=== PATIENT | male | born 1975 | race Caucasian/White ===

== ENCOUNTER 2018-08-20 15:10 | Inpatient (IN) | payer OTHER ==
[2018-08-20 22:33] VITALS: BMI 35.2
--- NOTE | 2018-08-20 23:22 | HP ---
"CIWA Score Nausea/Vomitin-Mild Nausea/No Vomiting Muscle Tremors: 3 Anxiety: 4-Mod. Anxious/Guarded Agitation: 4-Moderately Restless Paroxysmal Sweats: 3 (Increased facial moisture) Orientation: 1-Uncertain about Date Tacttile Disturbances: 0-None Auditory Disturbances: 0-None Visual Disturbances: 0-None Headache: 0-None Present CIWA-Ar Total Score: 16 - Admission Criteria OASAS Guidelines: Admission for Medically Managed Detox: Requires at least one of the followin. CIWA greater than 12 2. Seizures within the past 24 hours 3. Delirium tremens within the past 24 hours 4. Hallucinations within the past 24 hours 5. Acute intervention needed for co occurring medical disorder 6. Acute intervention needed for co occurring psychiatric disorder 7. Severe withdrawal that cannot be handled at a lower level of care (continued vomiting, continued diarrhea, abnormal vital signs) requiring intravenous medication and/or fluids 8. Patient presents the following: CIWA greater than 12 Admission Criteria Met: Admission criteria met Admission ROS [facility] Chief Complaint: Here to stop using alcohol. Allergies/Adverse Reactions: Allergies Allergy/AdvReac Type Severity Reaction Status Date / Time haloperidol [From Haldol] Allergy Verified 08/20/18 23:19 lactose AdvReac Verified 08/20/18 23:19 History of Present Illness: Presented with acute alcohol intoxication. LEANDRO not assessed for 2 hours then results were a LEANDRO 0.180 now down to 0.146 and in withdrawal. Alcohol use since age 15. Currently drinks 3 pints vodka daily. Crack use since since age 20. Last used 2 days ago. Nicotine use since age 18. Hx seizure 2 years and last blackout yesterday. Longest length of sobriety 2006-. PHX: Asthma Denies mental health issues. States hx insomnia - rx'd in past w/ Remeron. Denies depression. Denies thoughts of harming self or others. Search Terms: Angel Chavez, 1975 Search Date: 08/20/2018 11:20:34 PM The Drug Utilization Report below displays all of the controlled substance prescriptions, if any, that your patient has filled in the last twelve months. The information displayed on this report is compiled from pharmacy submissions to the Department, and accurately reflects the information as submitted by the pharmacies. This report was requested by: Jessica Malik | Reference #: [id number] There are no results for the search terms that you entered. Exam Limitations: No Limitations - Ebola screening Have you traveled outside of the country in the last 21 days: No Have you had contact with anyone from an Ebola affected area: No Have you been sick,other than usual withdrawal symptoms: No Do you have a fever: No - Review of Systems Constitutional: Diaphoresis, Changes in sleep (Difficulty falling asleep. States takes Remeron.) EENT: reports: Dental Problems (Missing a few. No pain.) Respiratory: reports: No Symptoms reported (States hx asthma) Cardiac: reports: No Symptoms Reported GI: reports: Nausea : reports: No Symptoms Reported Musculoskeletal: reports: No Symptoms Reported Integumentary: reports: No Symptoms Reported Neuro: reports: Seizure (r/t alcohol withdrawal.), Tremors Endocrine: reports: No Symptoms Reported Hematology: reports: No Symptoms Reported Psychiatric: reports: Judgement Intact, Orientated x3 (Unsure of specific date) , Agitated, Anxious Patient History - PPD History Previous Implant?: No Documented Results: Negative w/o proof Implanted On Prior [facility] Admission?: No PPD to be Administered?: Yes - Smoking Cessation Smoking history: Current every day smoker Have you smoked in the past 12 months: Yes Aproximately how many cigarettes per day: 20 Hx Chewing Tobacco Use: No Initiated information on smoking cessation: Yes 'Breaking Loose' booklet given: 08/20/18 - Substance & Tx. History Hx Alcohol Use: Yes Hx Substance Use: Yes Substance Use Type: Alcohol, Cocaine Hx Substance Use Treatment: Yes (detox, rehab) - Substances Abused Alcohol Route: Oral Frequency: Daily Amount used: 3 PINTS VODKA Age of first use: 7 Date of Last Use: 08/20/18 Crack Route: Smoking Frequency: Daily Amount used: $1500 Age of first use: 17 Date of Last Use: 08/18/18 Admission Physical Exam BHS - Vital Signs Vital Signs: Vital Signs - 24 hr 08/20/18 22:31 Temperature 97.9 F Pulse Rate 91 H Respiratory 18 Rate Blood Pressure 121/93 - Physical General Appearance: Yes: Disheveled, Moderate Distress, Alcohol on Breath, Tremorous, Irritable, Sweating, Anxious HEENTM: Yes: EOMI (Jerking movement of eyes on lateral gaze), Normal Voice, [place] , Pharynx Normal Respiratory: Yes: Lungs Clear, Normal Breath Sounds, No Respiratory Distress Neck: Yes: No masses,lesions,Nodules, Supple Breast: Yes: Breast Exam Deferred Cardiology: Yes: Regular Rhythm, Regular Rate, S1, S2 Abdominal: Yes: Flat, Soft, Increased Bowel Sounds, Protuberent (Increased abdomnial adiposity) Genitourinary: Yes: Within Normal Limits Back: Yes: Normal Inspection Musculoskeletal: Yes: full range of Motion, Gait Steady Extremities: Yes: Normal Capillary Refill, Normal Range of Motion, Tremors Neurological: Yes: plate setter II-XII NML intact (Jerking movement of eyes on lateral gaze), Motor Strength 5/5 Integumentary: Yes: Dry (Very dry w/ decreased turgor), Diaphoresis (Increased facial moisture) Lymphatic: Yes: Within Normal Limits - Diagnostic (1) Alcohol dependence with uncomplicated withdrawal Current Visit: Yes Status: Acute (2) Nicotine dependence, uncomplicated Current Visit: Yes Status: Acute Qualifiers: Nicotine product type: cigarettes Qualified Code(s): F17.210 - Nicotine dependence, cigarettes, uncomplicated (3) History of asthma Current Visit: Yes Status: Chronic Comment: Denies recent exacerbation (4) Dehydration Current Visit: Yes Status: Acute (5) Cocaine use disorder, moderate, in early remission Current Visit: Yes Status: Acute Cleared for Admission [facility] - Detox or Rehab [facility] Level of Care: Medically Managed Detox Regimen/Protocol: Librium [facility] Breath Alcohol Content Breath Alcohol Content: 0.181 Urine Drug Screen - Results Drug Screen Negative: No Urine Drug Screen Results: BZO-Benzodiazepines Inpatient Rehab Admission - Rehab Decision to Admit Inpatient rehab admission?: No"
[2018-08-20] MEDS ORDERED: MAG HYDROX/AL HYDROX/SIMETH 30 ML UNIT-DOSE CUP PO PRN (23:59)
[2018-08-20] MEDS ORDERED: MENTHOL/PHENOL 1 EACH UD MM PRN (23:59)
[2018-08-20] MEDS ORDERED: MAGNESIUM HYDROX 2400MG/30ML ORAL SUSPENSION 30 ML CUP PO PRN (23:59)
[2018-08-20] MEDS ORDERED: NICOTINE POLACRILEX 2 MG GUM BC PRN (23:59)
[2018-08-20] MEDS ORDERED: MAGNESIUM CITRATE 300 ML BOTTLE PO PRN (23:59)
[2018-08-20] MEDS ORDERED: IBUPROFEN 400 MG TABLET (FP) PO PRN (23:59)
[2018-08-20] MEDS ORDERED: LOPERAMIDE HCL 2 MG CAPSULE PO PRN (23:59)
[2018-08-20] MEDS ORDERED: ACETAMINOPHEN 325 MG TABLET (FP) PO PRN (23:59)
[2018-08-21] MEDS ORDERED: guaiFENesin 200 MG/10 ML 10 ML UNIT-DOSE CUPS PO PRN
[2018-08-21] MEDS ORDERED: chlordiazePOXIDE HCL 25 MG CAPSULE PO ONE (01:03)
[2018-08-21] MEDS ORDERED: ALBUTEROL SO4 0.083% IH SOL 2.5 MG/3 ML VIAL.NEB. NEB PRN (02:15)
[2018-08-21] MEDS: chlordiazePOXIDE HCL 25 MG CAPSULE PO SCH ×4 (06:16→21:59)
[2018-08-21] MEDS: NICOTINE 21 MG/24 HOURS TOPICAL PATCH TD SCH (10:20)
[2018-08-21] MEDS: PRENATAL VITAMINS W/ FOLIC ACID TABLET (FP) PO SCH (10:20)
--- NOTE | 2018-08-21 12:46 | EKG ---
Test Reason : Blood Pressure : / mmHG Vent. Rate : 112 BPM Atrial Rate : 112 BPM P-R Int : 158 ms QRS Dur : 092 ms QT Int : 334 ms P-R-T Axes : 048 074 055 degrees QTc Int : 455 ms SINUS TACHYCARDIA WITH OCCASIONAL PREMATURE VENTRICULAR COMPLEXES OTHERWISE NORMAL ECG NO PREVIOUS ECGS AVAILABLE Confirmed by TANIA RANDALL, SHELBI ([id number]) on 08/21/2018 12:46:35 PM Referred By: RUPAL COSTA Confirmed By:SHELBI MARIN MD
[2018-08-21] MEDS: chlordiazePOXIDE HCL 25 MG CAPSULE PO PRN (14:01)
--- NOTE | 2018-08-21 15:45 | PN ---
S CIWA - CIWA Score Nausea/Vomitin-Mild Nausea/No Vomiting Muscle Tremors: 3 Anxiety: 2 Agitation: 2 Paroxysmal Sweats: 1-Minimal Palms Moist Orientation: 2-Disoriented Date<2 days Tacttile Disturbances: 0-None Auditory Disturbances: 0-None Visual Disturbances: 0-None Headache: 0-None Present CIWA-Ar Total Score: 11 BHS Progress Note (SOAP) Subjective: tremor sweating anxiety restlessness Objective: 08/21/18 15:46 Vital Signs Temperature 99.1 F 08/21/18 13:41 Pulse Rate 102 H 08/21/18 14:30 Respiratory Rate 16 08/21/18 14:30 Blood Pressure 158/94 08/21/18 13:41 O2 Sat by Pulse Oximetry (%) lab pending Assessment: 08/21/18 16:14 alcohol withdrawal sx Plan: continue detox
[2018-08-21] MEDS: THIAMINE HCL 100 MG TABLET (FP) PO SCH (21:59)
[2018-08-21] MEDS: MELATONIN 5 MG TABLETS PO PRN (22:00)
[2018-08-21 23:07] LABS: URINE APPEARANCE CLEAR; URINE BILIRUBIN NEGATIVE (<2.0 mg/dL); URINE COLOR STRAW; URINE GLUCOSE (UA) NEGATIVE (NEGATIVE); URINE KETONE NEGATIVE (NEGATIVE); URINE LEUK ESTERASE NEGATIVE (NEGATIVE); URINE NITRITE NEGATIVE (NEGATIVE); URINE PROTEIN NEGATIVE (NEGATIVE); URINE UROBILINOGEN NEGATIVE mg/dL (0.2-1.0)
[2018-08-22] MEDS: chlordiazePOXIDE HCL 25 MG CAPSULE PO SCH ×4 (06:00→22:18)
--- NOTE | 2018-08-22 10:08 | CONSULT ---
[facility] Psychiatric Consult - Data Date of interview: 08/22/18 Admission source: [facility] Identifying data: Patient is a 43 year old single male, without children, unemployed (denies receiving financial assistance) and is currently homeless. This is patient's first admission to detox at [facility]. Patient admitted to for alcohol dependence. Substance Abuse History: Smoking Cessation. Smoking history: Current every day smoker. Have you smoked in the past 12 months: Yes. Aproximately how many cigarettes per day: 20. Hx Chewing Tobacco Use: No. Initiated information on smoking cessation: Yes. 'Breaking Loose' booklet given: 08/20/18. - Substance & Tx. History. Hx Alcohol Use: Yes. Hx Substance Use: Yes. Substance Use Type : Alcohol, Cocaine. Hx Substance Use Treatment: Yes (detox, rehab). - Substances Abused. Alcohol. Route: Oral. Frequency: Daily. Amount used: 3 PINTS VODKA. Age of first use: 7. Date of Last Use: 08/20/18. Crack. Route: Smoking. Frequency: Daily. Amount used: $1500. Age of first use: 17. Date of Last Use: 08/18/18 Medical History: Asthma Psychiatric History: Patient has only received psychiatric care during his admissions at detox and rehab facilities. Last month, patient was in detox at an unknown facility in [place] and states he was prescribed remeron 30mg for insomnia. He discontinued the medication after discharge. Mr. Chavez denies h/o psychiatric hospitalization, outpatient care, and suicide attempt. At present, patient reports difficulty sleeping. Physical/Sexual Abuse/Trauma History: denies. Mental Status Exam - Mental Status Exam Alert and Oriented to: Time, Place, Person Cognitive Function: Good Patient Appearance: Well Groomed Mood: Irritable (patient upset because someone took his breakfast ) Affect: Mood Congruent Patient Behavior: Cooperative Speech Pattern: Appropriate Voice Loudness: Normal Thought Process: Intact, Goal Oriented Thought Disorder: Not Present Hallucinations: Denies Suicidal Ideation: Denies Homicidal Ideation: Denies Insight/Judgement: Poor Sleep: Poorly Appetite: Fair Muscle strength/Tone: Normal Gait/Station: Normal Psychiatric Findings - Problem List ([place] 1, 2,3) (1) Alcohol dependence with uncomplicated withdrawal Current Visit: Yes Status: Acute (2) Cocaine use disorder, moderate, in early remission Current Visit: Yes Status: Acute (3) Nicotine dependence, uncomplicated Current Visit: Yes Status: Acute Qualifiers: Nicotine product type: cigarettes Qualified Code(s): F17.210 - Nicotine dependence, cigarettes, uncomplicated (4) Substance-induced sleep disorder Current Visit: Yes Status: Acute - Initial Treatment Plan Initial Treatment Plan: Psychoeducation provided. Detoxification in progress. Will order Mirtzapine 15mg HS. Benefits and side effects discussed. Verbal consent given.
[2018-08-22] MEDS: NICOTINE 21 MG/24 HOURS TOPICAL PATCH TD SCH (10:24)
[2018-08-22] MEDS: PRENATAL VITAMINS W/ FOLIC ACID TABLET (FP) PO SCH (10:24)
[2018-08-22 10:37] LABS: HEMATOCRIT 41.2 % (35.4-49); MCHC 34.1 g/dl (32.0-35.9); MEAN CELL VOLUME 88.1 fl (80-96); MEAN PLT VOLUME 6.9 fl (7.5-11.1); PLATELET COUNT 127 K/MM3 (134-434); RBC 4.67 M/mm3 (4.00-5.60); WHITE BLOOD COUNT 4.7 K/mm3 (4.0-10.0)
[2018-08-22 10:57] LABS: ALK PHOS 100 U/L (45-117); ANION GAP 8 MMOL/L (8-16); BILIRUBIN,TOTAL 0.5 mg/dL (0.2-1); BLOOD UREA NITROGEN 10 mg/dL (7-18); CHLORIDE 106 mmol/L (98-107); CO2 28 mmol/L (21-32); CREATININE 0.9 mg/dL (0.55-1.3); GLUCOSE,RANDOM 101 mg/dL (74-106); POTASSIUM 3.7 mmol/L (3.5-5.1); SGOT/AST 17 U/L (15-37); SGPT/ALT 34 U/L (13-61); SODIUM 142 mmol/L (136-145); TOT PROT 5.9 g/dl (6.4-8.2)
--- NOTE | 2018-08-22 12:11 | PN ---
S CIWA - CIWA Score Nausea/Vomitin-No Nausea/No Vomiting Muscle Tremors: 2 Anxiety: 1-Mildly Anxious Agitation: 1-Slight > Activity Paroxysmal Sweats: 1-Minimal Palms Moist Orientation: 0-Oriented Tacttile Disturbances: 0-None Auditory Disturbances: 0-None Visual Disturbances: 0-None Headache: 1-Very Mild CIWA-Ar Total Score: 6 BHS Progress Note (SOAP) Subjective: tremor irritable agitative sweating Objective: 08/22/18 12:10 Vital Signs Temperature 97.5 F L 08/22/18 09:54 Pulse Rate 84 08/22/18 09:54 Respiratory Rate 18 08/22/18 09:54 Blood Pressure 155/103 H 08/22/18 09:54 O2 Sat by Pulse Oximetry (%) Laboratory Last Values WBC 4.7 K/mm3 (4.0-10.0) 08/22/18 07:00 RBC 4.67 M/mm3 (4.00-5.60) 08/22/18 07:00 Hgb 14.0 GM/dL (11.7-16.9) 08/22/18 07:00 Hct 41.2 % (35.4-49) 08/22/18 07:00 MCV 88.1 fl (80-96) 08/22/18 07:00 MCH 30.0 pg (25.7-33.7) 08/22/18 07:00 MCHC 34.1 g/dl (32.0-35.9) 08/22/18 07:00 RDW 17.0 % (11.9-15.9) H 08/22/18 07:00 Plt Count 127 K/MM3 (134-434) L 08/22/18 07:00 MPV 6.9 fl (7.5-11.1) L 08/22/18 07:00 Sodium 142 mmol/L (136-145) 08/22/18 07:00 Potassium 3.7 mmol/L (3.5-5.1) 08/22/18 07:00 Chloride 106 mmol/L (98-107) 08/22/18 07:00 Carbon Dioxide 28 mmol/L (21-32) 08/22/18 07:00 Anion Gap 8 MMOL/L (8-16) 08/22/18 07:00 BUN 10 mg/dL (7-18) 08/22/18 07:00 Creatinine 0.9 mg/dL (0.55-1.3) 08/22/18 07:00 Creat Clearance w eGFR > 60 (>60) 08/22/18 07:00 Random Glucose 101 mg/dL (74-106) 08/22/18 07:00 Calcium 8.0 mg/dL (8.5-10.1) L 08/22/18 07:00 Total Bilirubin 0.5 mg/dL (0.2-1) 08/22/18 07:00 AST 17 U/L (15-37) 08/22/18 07:00 ALT 34 U/L (13-61) 08/22/18 07:00 Alkaline Phosphatase 100 U/L (45-117) 08/22/18 07:00 Total Protein 5.9 g/dl (6.4-8.2) L 08/22/18 07:00 Albumin 3.0 g/dl (3.4-5.0) L 08/22/18 07:00 Urine Color Straw 08/21/18 22:10 Urine Appearance Clear 08/21/18 22:10 Urine pH 8.0 (5.0-8.0) 08/21/18 22:10 Ur Specific [place] 1.011 (1.010-1.035) 08/21/18 22:10 Urine Protein Negative (NEGATIVE) 08/21/18 22:10 Urine Glucose (UA) Negative (NEGATIVE) 08/21/18 22:10 Urine Ketones Negative (NEGATIVE) 08/21/18 22:10 Urine Blood Negative (NEGATIVE) 08/21/18 22:10 Urine Nitrite Negative (NEGATIVE) 08/21/18 22:10 Urine Bilirubin Negative (<2.0 mg/dL) 08/21/18 22:10 Urine Urobilinogen Negative mg/dL (0.2-1.0) 08/21/18 22:10 Ur Leukocyte Esterase Negative (NEGATIVE) 08/21/18 22:10 lab noted Ca++ low Assessment: 08/22/18 12:11 withdrawal sx Plan: continue detox
[2018-08-22] MEDS: CALCIUM 250MG/VIT-D 125 UNITS 1 COMBO TABLET PO SCH ×2 (13:09→22:19)
[2018-08-22] MEDS: chlordiazePOXIDE HCL 25 MG CAPSULE PO PRN (13:09)
--- NOTE | 2018-08-22 14:05 | EKG ---
Test Reason : Blood Pressure : / mmHG Vent. Rate : 087 BPM Atrial Rate : 088 BPM P-R Int : 162 ms QRS Dur : 094 ms QT Int : 404 ms P-R-T Axes : 119 103 112 degrees QTc Int : 486 ms SUSPECT ARM LEAD REVERSAL, INTERPRETATION ASSUMES NO REVERSAL NORMAL SINUS RHYTHM RIGHTWARD AXIS PROLONGED QT ABNORMAL ECG NO PREVIOUS ECGS AVAILABLE Confirmed by BRITTA ALEXANDRE MD ([id number]) on 08/22/2018 2:05:08 PM Referred By: Confirmed By:BRITTA ALEXANDRE MD
[2018-08-22] MEDS ORDERED: MIRTAZAPINE 15 MG TABLET (FP) PO SCH (22:00)
[2018-08-22] MEDS: MELATONIN 5 MG TABLETS PO PRN (22:19)
[2018-08-22] MEDS: THIAMINE HCL 100 MG TABLET (FP) PO SCH (22:19)
[2018-08-23] MEDS: chlordiazePOXIDE 5 MG CAPSULE PO SCH ×3 (05:26→17:36)
[2018-08-23] MEDS: CALCIUM 250MG/VIT-D 125 UNITS 1 COMBO TABLET PO SCH (10:27)
[2018-08-23] MEDS: NICOTINE 21 MG/24 HOURS TOPICAL PATCH TD SCH (10:28)
[2018-08-23] MEDS: PRENATAL VITAMINS W/ FOLIC ACID TABLET (FP) PO SCH (10:28)
--- NOTE | 2018-08-23 16:49 | PN ---
BHS Progress Note (SOAP) Subjective: Sweating, Anxious. Objective: PATIENT A & O X 3. IN NO ACUTE DISTRESS. 08/23/18 16:47 Vital Signs Temperature 96.0 F L 08/23/18 13:21 Pulse Rate 88 08/23/18 13:21 Respiratory Rate 20 08/23/18 13:21 Blood Pressure 144/92 08/23/18 13:21 O2 Sat by Pulse Oximetry (%) Laboratory Tests 08/21/18 08/22/18 08/22/18 22:10 07:00 07:00 WBC 4.7 RBC 4.67 Hgb 14.0 Hct 41.2 MCV 88.1 MCH 30.0 MCHC 34.1 RDW 17.0 H Plt Count 127 L MPV 6.9 L Sodium 142 Potassium 3.7 Chloride 106 Carbon Dioxide 28 Anion Gap 8 BUN 10 Creatinine 0.9 Creat Clearance w eGFR > 60 Random Glucose 101 Calcium 8.0 L Total Bilirubin 0.5 AST 17 ALT 34 Alkaline Phosphatase 100 Total Protein 5.9 L Albumin 3.0 L Urine Color Straw Urine Appearance Clear Urine pH 8.0 Ur Specific [place] 1.011 Urine Protein Negative Urine Glucose (UA) Negative Urine Ketones Negative Urine Blood Negative Urine Nitrite Negative Urine Bilirubin Negative Urine Urobilinogen Negative Ur Leukocyte Esterase Negative RPR Titer 08/22/18 07:00 WBC RBC Hgb Hct MCV MCH MCHC RDW Plt Count MPV Sodium Potassium Chloride Carbon Dioxide Anion Gap BUN Creatinine Creat Clearance w eGFR Random Glucose Calcium Total Bilirubin AST ALT Alkaline Phosphatase Total Protein Albumin Urine Color Urine Appearance Urine pH Ur Specific [place] Urine Protein Urine Glucose (UA) Urine Ketones Urine Blood Urine Nitrite Urine Bilirubin Urine Urobilinogen Ur Leukocyte Esterase RPR Titer Nonreactive LABS NOTED. Assessment: 08/23/18 16:47 WITHDRAWAL SYMPTOMS. THROMBOCYTOPENIA. Plan: PATIENT REPORTS THAT CURRENT WITHDRAWAL SYMPTOMS ARE TOLERABLE. BED IS CURRENTLY AVAILABLE AT [facility] ([place], [place]), PATIENT REQUESTS TO GO ON TO REHAB FOR AFTERCARE TODAY.
--- NOTE | 2018-08-23 16:53 | DS ---
[facility] Detox Discharge Summary Admission Date: 08/20/18 Discharge Date: 08/23/18 - History Present History: Alcohol Dependence, Cocaine Dependence Additional Comments: PATIENT REPORTS THAT CURRENT WITHDRAWAL SYMPTOMS ARE TOLERABLE AND REQUESTS TO GO NO TO [facility] ([place], [place]) BED IS CURRENTLY AVAILABLE THERE AT THIS TIME. PATIENT WAS DISCHARGED FROM DETOX UNIT TO BE TAKEN OVER TO REHAB UNIT IN STABLE MEDICAL CONDITION. Pertinent Past History: Asthma, Nicotine Dependence, Dehydration. - Physical Exam Results Vital Signs: Vital Signs Temperature 96.0 F L 08/23/18 13:21 Pulse Rate 88 08/23/18 13:21 Respiratory Rate 20 08/23/18 13:21 Blood Pressure 144/92 08/23/18 13:21 O2 Sat by Pulse Oximetry (%) Pertinent Admission Physical Exam Findings: WITHDRAWAL SYMPTOMS. Laboratory Tests 08/21/18 08/22/18 08/22/18 22:10 07:00 07:00 WBC 4.7 RBC 4.67 Hgb 14.0 Hct 41.2 MCV 88.1 MCH 30.0 MCHC 34.1 RDW 17.0 H Plt Count 127 L MPV 6.9 L Sodium 142 Potassium 3.7 Chloride 106 Carbon Dioxide 28 Anion Gap 8 BUN 10 Creatinine 0.9 Creat Clearance w eGFR > 60 Random Glucose 101 Calcium 8.0 L Total Bilirubin 0.5 AST 17 ALT 34 Alkaline Phosphatase 100 Total Protein 5.9 L Albumin 3.0 L Urine Color Straw Urine Appearance Clear Urine pH 8.0 Ur Specific [place] 1.011 Urine Protein Negative Urine Glucose (UA) Negative Urine Ketones Negative Urine Blood Negative Urine Nitrite Negative Urine Bilirubin Negative Urine Urobilinogen Negative Ur Leukocyte Esterase Negative RPR Titer 08/22/18 07:00 WBC RBC Hgb Hct MCV MCH MCHC RDW Plt Count MPV Sodium Potassium Chloride Carbon Dioxide Anion Gap BUN Creatinine Creat Clearance w eGFR Random Glucose Calcium Total Bilirubin AST ALT Alkaline Phosphatase Total Protein Albumin Urine Color Urine Appearance Urine pH Ur Specific [place] Urine Protein Urine Glucose (UA) Urine Ketones Urine Blood Urine Nitrite Urine Bilirubin Urine Urobilinogen Ur Leukocyte Esterase RPR Titer Nonreactive LABS NOTED. - Treatment Hospital Course: Detox Protocol Followed, Detoxed Safely, Responded well, Discharged Condition Good, Rehab Referral Accepted Patient has Accepted a Rehab Referral to: [facility] ([place], [place]). - Medication Discharge Medications: Ambulatory Orders NK [No Known Home Medication] 08/20/18 - Diagnosis (1) Alcohol dependence with uncomplicated withdrawal Current Visit: Yes Status: Acute (2) Cocaine use disorder, moderate, in early remission Current Visit: Yes Status: Acute (3) Dehydration Current Visit: Yes Status: Acute (4) Nicotine dependence, uncomplicated Current Visit: Yes Status: Acute Qualifiers: Nicotine product type: cigarettes Qualified Code(s): F17.210 - Nicotine dependence, cigarettes, uncomplicated (5) Substance-induced sleep disorder Current Visit: Yes Status: Acute (6) History of asthma Current Visit: Yes Status: Chronic - AMA Did Patient Leave Against Medical Advice: No
[2018-08-23 17:59] VITALS: BP 113/70; PULSE 73; TEMP 98.4
[2018-08-24] MEDS ORDERED: chlordiazePOXIDE HCL 10 MG CAPSULE PO SCH (05:00)
== END 2018-08-23 17:05 | disposition other institution (70) | DRG 774 ==
LOC: YASAS 15:10 → Y3N 23:22
PROVIDERS: ADMIT Surgery; ATTEND Surgery
PROC: HZ2ZZZZ Detoxification Services for Substance Abuse Treatment (ICD-10-PCS; principal; 2018-08-20)
DX: F10.230 Alcohol dependence with withdrawal, uncomplicated (principal); F14.10 Cocaine abuse, uncomplicated; F17.210 Nicotine dependence, cigarettes, uncomplicated; F19.282 Other psychoactive substance dependence with psychoactive substance-induced sleep disorder; E86.0 Dehydration; J45.909 Unspecified asthma, uncomplicated; Z88.8 Allergy status to other drugs, medicaments and biological substances; Z59.0 Homelessness
CPT/HCPCS: 36415; 80053; 81003; 85027; 86593; 93005; 93010

== ENCOUNTER 2018-08-23 23:17 | Inpatient (IN) | payer OTHER ==
--- NOTE | 2018-08-23 16:59 | HP ---
[facility] Rehab Assess/Revision - Admission History Admitted to Rehab from: [facility] Date of Admission to Rehab: 08/23/2018 - Vital signs Vital Signs: NOTED; STABLE. - Findings Detox History & Physical reviewed: Yes Concur with findings: Yes Comments/Additional Findings: PATIENT'S MEDICAL / MEDICATION HISTORY REVIEWED PRIOR TO DISCHARGE FROM DETOX UNIT. PATIENT WAS DISCHARGED FROM DETOX UNIT TO BE TAKEN TO REHAB UNIT IN STABLE MEDICAL CONDITION. Inpatient Rehab Admission - Rehab Decision to Admit Inpatient rehab admission?: Yes - Initial Determination Are CD services needed?: Yes Free of communicable disease: Yes Not in need of hospitalization: Yes - Rehab Admission Criteria Previous failed treatment: Yes Poor recovery environment: Yes Comorbidities: Yes Lacks judgement: No Patient is meeting Inpatient Rehab admission criteria:: Yes
[~2018-08-23 23:17] MED LIST: ACETAMINOPHEN 325 MG TABLET (FP) PO PRN; ALBUTEROL SO4 2.5/IPRATROPIUM 0.5 INH SOL 3 ML VIAL.NEB. NEB PRN; IBUPROFEN 400 MG TABLET (FP) PO PRN; LOPERAMIDE HCL 2 MG CAPSULE PO PRN; MAG HYDROX/AL HYDROX/SIMETH 30 ML UNIT-DOSE CUP PO PRN; MAGNESIUM CITRATE 300 ML BOTTLE PO PRN; MAGNESIUM HYDROX 2400MG/30ML ORAL SUSPENSION 30 ML CUP PO PRN; MENTHOL/PHENOL 1 EACH UD MM PRN; P-EPHED 60MG/TRIPROLIDI 2.5MG TABLET PO PRN; guaiFENesin 200 MG/10 ML 10 ML UNIT-DOSE CUPS PO PRN
[2018-08-23] MEDS: CALCIUM 250MG/VIT-D 125 UNITS 1 COMBO TABLET PO SCH (23:53)
[2018-08-23] MEDS: THIAMINE HCL 100 MG TABLET (FP) PO SCH (23:53)
[2018-08-24] MEDS: NICOTINE 21 MG/24 HOURS TOPICAL PATCH TD SCH (10:47)
[2018-08-24] MEDS: CALCIUM 250MG/VIT-D 125 UNITS 1 COMBO TABLET PO SCH ×2 (10:49→22:02)
[2018-08-24] MEDS: PRENATAL VITAMINS W/ FOLIC ACID TABLET (FP) PO SCH (10:49)
--- NOTE | 2018-08-24 10:53 | CONSULT ---
[facility] Psychiatric Consult - Data Date of interview: 08/24/18 Admission source: Transfer from [address] [place] [address]. Identifying data: First admission to [facility] for this 43 y/o male, initially treated on [address] [place] [address] for detoxification, now transferred to [address] for rehabilitation. Substances of abuse : alcohol + cocaine (crack). Patient is single, no children, undomiciled, unemployed and reportedly deprived of any source of income. Substance Abuse History: Confirmed by the patient. Details in current [facility] report issued on admission : Smoking history: Current every day smoker. Have you smoked in the past 12 months: Yes. Aproximately how many cigarettes per day : 20. Hx Chewing Tobacco Use: No. Initiated information on smoking cessation: Yes. 'Breaking Loose' booklet given: 08/20/18. - Substance & Tx. History. Hx Alcohol Use: Yes. Hx Substance Use: Yes. Substance Use Type: Alcohol, Cocaine. Hx Substance Use Treatment: Yes (detox, rehab). - Substances Abused. Alcohol. Route: Oral. Frequency: Daily. Amount used: 3 PINTS VODKA. Age of first use: 7. Date of Last Use: 08/20/18. Crack. Route: Smoking. Frequency: Daily. Amount used: $1500. Age of first use: 17. Date of Last Use : 08/18/18 Medical History: Obesity and bronchial asthma. Psychiatric History: Patient denies history of psychiatric hospitalizations or OPD care. Endorses no prior exposure to psychotropic medications except for mirtazapine (prescribed at an unnamed substance abuse treatment facility in [place]. Mr Chavez reports that he was prescribed 30 mg of mirtazapine at bedtime. " I stay awake all night on 15 mg. It's not working. My dose is 30 mg. Otherwise, I get agitated by the fact I don't sleep at night ". No reported history of suicide attempts. Physical/Sexual Abuse/Trauma History: Not discussed. Patient declines. Additional Comment: Urine Drug Screen Results: BZO-Benzodiazepines. Noted. Mental Status Exam - Mental Status Exam Alert and Oriented to: Time, Place, Person Cognitive Function: Good Patient Appearance: Well Groomed (short stature, obese) Mood: Angry (about not being able to get adequate sleep + not getting mirtazapine), Anxious, Irritable (at the beginning of the interview; calmed down after receiving reassurance that mirtazapine will be resumed at bedtime) Affect: Mood Congruent, Normal Range (considerably improved after psychiatric interview) Patient Behavior: Talkative, Appropriate, Cooperative Speech Pattern: Clear, Appropriate (bruneian-speaking) Voice Loudness: Normal Thought Process: Intact, Goal Oriented Thought Disorder: Not Present Hallucinations: Denies Suicidal Ideation: Denies Homicidal Ideation: Denies Insight/Judgement: Fair Sleep: Poorly, Difficulty falling asleep (insists on getting back on 30 mg of mirtazapine) Appetite: Good Muscle strength/Tone: Normal Gait/Station: Normal Psychiatric Findings - Problem List ([place] 1, 2,3) (1) Alcohol dependence Current Visit: Yes Status: Chronic (2) Cocaine dependence Current Visit: Yes Status: Chronic Comment: Urine toxicology is negative for cocaine but the patient has reported a sustained history of daily abuse of that substance since age 17. (3) Nicotine dependence, uncomplicated Current Visit: Yes Status: Chronic Qualifiers: Nicotine product type: cigarettes Qualified Code(s): F17.210 - Nicotine dependence, cigarettes, uncomplicated (4) Substance induced mood disorder Current Visit: Yes Status: Suspected (5) Insomnia Current Visit: Yes Status: Chronic - Initial Treatment Plan Initial Treatment Plan: Record of hospital course at [address] [place] [address] : revisited. Patient's complaints are validated. Reassurance given. Psychoeducation. Support. AA meetings. Strategies for relapse prevention will be discussed with the patient throughout rehabilitation treatment. Sleep hygiene. Motivational sessions. Remeron 30 mg po hs. Resumed (patient was on 15 mg/hs at [address] [place] [address]). Side effects/benefits of the drug are discussed with the patient. No history of adverse effects (self-report). Mr Chavez consents (verbally) to this plan of care. Observation.
[2018-08-24] MEDS: MIRTAZAPINE 30 MG TABLET (FP) PO SCH (22:02)
[2018-08-24] MEDS: THIAMINE HCL 100 MG TABLET (FP) PO SCH (22:02)
[2018-08-24] MEDS: MELATONIN 5 MG TABLETS PO PRN (22:03)
[2018-08-24] MEDS ORDERED: BISMUTH SUBSALICYLATE 524 MG/30 ML UD PO PRN (23:54)
[2018-08-25] MEDS: hydrOXYzine PAMOATE 50 MG CAPSULE (FP) PO PRN ×2 (00:15→22:25)
[2018-08-25] MEDS: CALCIUM 250MG/VIT-D 125 UNITS 1 COMBO TABLET PO SCH ×2 (11:00→22:23)
[2018-08-25] MEDS: NICOTINE 21 MG/24 HOURS TOPICAL PATCH TD SCH (11:00)
[2018-08-25] MEDS: PRENATAL VITAMINS W/ FOLIC ACID TABLET (FP) PO SCH (11:00)
[2018-08-25] MEDS: NICOTINE POLACRILEX 2 MG GUM BUC PRN ×2 (18:07→22:27)
[2018-08-25] MEDS: THIAMINE HCL 100 MG TABLET (FP) PO SCH (22:23)
[2018-08-25] MEDS: MIRTAZAPINE 30 MG TABLET (FP) PO SCH (22:23)
[2018-08-26] MEDS: NICOTINE 21 MG/24 HOURS TOPICAL PATCH TD SCH (09:50)
[2018-08-26] MEDS: PRENATAL VITAMINS W/ FOLIC ACID TABLET (FP) PO SCH (09:52)
[2018-08-26] MEDS: CALCIUM 250MG/VIT-D 125 UNITS 1 COMBO TABLET PO SCH ×2 (09:52→21:08)
--- NOTE | 2018-08-26 12:00 | PN ---
Psychiatric Progress Note Vital Signs: Vital Signs Period Temp Pulse Resp BP Sys/Collier Pulse Ox Last 24 Hr 97.5 F 87 18-18 130/84 Date of Session: 08/26/18 Chief Complaint:: Insomnia HPI: Mr Chavez is a 43 years old male admitted to this facility on 08/23/18 for inpatient rehabilitation for alcohol and cocaine ROS: Asthma, Obesity Current Medications: Active Medications Generic Name Dose Route Start Last Admin Trade Name Freq PRN Reason Stop Dose Admin Acetaminophen 650 mg 08/23/18 16:54 Tylenol - PO Q4H PRN FEVER Al Hydroxide/Mg Hydroxide 30 ml 08/23/18 16:54 Mylanta Oral Suspension - PO Q6H PRN DYSPEPSIA Albuterol/Ipratropium 1 amp 08/23/18 16:56 Duoneb - NEB Q6H PRN SHORT OF BREATH/WHEEZING Bismuth Subsalicylate 524 mg 08/24/18 23:54 Pepto-Bismol - PO BID PRN DIARRHEA Calcium/Vitamin D 1 tab 08/23/18 22:00 08/26/18 09:52 Oscal 250 Mg+D - PO 08/30/18 21:59 Not Given BID ZAKIA Eucalyptus/Menthol/Phenol/Sorbitol 1 each 08/23/18 16:54 Cepastat Lozenge - MM Q4H PRN SORE THROAT Guaifenesin 10 ml 08/23/18 16:54 Robitussin - PO Q6H PRN COUGH Hydroxyzine Pamoate 50 mg 08/24/18 23:52 08/25/18 22:25 Vistaril - PO 50 mg Q6H PRN Administration FOR ITCHING Ibuprofen 400 mg 08/23/18 16:54 Motrin - PO Q6H PRN Pain Level 4-6 Loperamide HCl 4 mg 08/23/18 16:54 08/25/18 00:15 Imodium - PO 4 mg Q6H PRN Administration DIARRHEA Magnesium Citrate 300 ml 08/23/18 16:54 Citroma - PO Q48H PRN CONSTIPATION Magnesium Hydroxide 30 ml 08/23/18 16:54 Milk Of Magnesia - PO DAILY PRN CONSTIPATION Melatonin 5 mg 08/23/18 22:00 08/24/18 22:03 Melatonin PO 5 mg HS PRN Administration INSOMNIA Mirtazapine 30 mg 08/24/18 22:00 08/25/18 22:23 Remeron - PO 30 mg HS ZAKIA Administration Nicotine 21 mg 08/24/18 10:00 08/26/18 09:50 Nicoderm Patch - TD 21 mg DAILY ZAKIA Administration Nicotine Polacrilex 2 mg 08/23/18 16:54 08/25/18 22:27 Nicorette Gum - BUC 2 mg Q2H PRN Administration NICOTINE REPLACEMENT RX Multivit/Folic Acid/Iron 1 tab 08/24/18 10:00 08/26/18 09:52 Vitamins (Sjr) - PO Not Given DAILY ZAKIA Pseudoephedrine/Triprolidine 1 combo 08/23/18 16:54 Actifed - PO TID PRN NASAL CONGESTION Thiamine HCl 100 mg 08/23/18 22:00 08/25/18 22:23 Vitamin B1 - PO Not Given HS ZAKIA Trazodone HCl 50 mg 08/26/18 22:00 Desyrel - PO HS ZAKIA Current Side Effect: No Lab tests ordered: Yes Lab tests reviewed: Yes Provider note:: Patient reports sleeping poorly despite taking Remeron 30 mg and Melatonin 5 mg at bedtime. Requests that Trazadone be added to his regimen. Discussed with patient advers-effects of Trazadone and he agreed to try it Total face to face time:: 15 Mental Status Exam - Mental Status Exam Alert and Oriented to: Time, Place, Person Cognitive Function: Fair Patient Appearance: Well Groomed Mood: Hopeful, Euthymic Affect: Appropriate Patient Behavior: Cooperative Speech Pattern: Clear Voice Loudness: Normal Thought Process: Intact Thought Disorder: Not Present Hallucinations: Denies Suicidal Ideation: Denies Homicidal Ideation: Denies Insight/Judgement: Fair Sleep: Poorly Appetite: Good Muscle strength/Tone: Normal Gait/Station: Normal Psychiatric Treatment Plan - Problem List (1) Substance induced mood disorder Current Visit: Yes (2) Substance-induced sleep disorder Current Visit: No (3) Alcohol dependence Current Visit: Yes (4) Cocaine dependence Current Visit: Yes Comment: Urine toxicology is negative for cocaine but the patient has reported a sustained history of daily abuse of that substance since age 17. (5) Nicotine dependence Current Visit: Yes (6) Bronchial asthma Current Visit: Yes (7) Obesity Current Visit: Yes Initial treatment plan: 1) Start Trazadone 50 mg po HS. 2) Continue inpatient rehabilitation
[2018-08-26] MEDS ORDERED: BISMUTH SUBSALICYLATE 262 MG/15 ML BTL PO PRN (15:04)
[2018-08-26] MEDS: BISMUTH SUBSALICYLATE 262 MG/15 ML BTL PO PRN (18:12)
[2018-08-26] MEDS: MIRTAZAPINE 30 MG TABLET (FP) PO SCH (21:07)
[2018-08-26] MEDS: traZODone HCL 50 MG TABLET (FP) PO SCH (21:07)
[2018-08-26] MEDS: THIAMINE HCL 100 MG TABLET (FP) PO SCH (21:08)
[2018-08-27] MEDS: BISMUTH SUBSALICYLATE 262 MG/15 ML BTL PO PRN ×2 (06:27→21:10)
[2018-08-27] MEDS: PRENATAL VITAMINS W/ FOLIC ACID TABLET (FP) PO SCH (09:26)
[2018-08-27] MEDS: CALCIUM 250MG/VIT-D 125 UNITS 1 COMBO TABLET PO SCH ×2 (09:26→21:12)
[2018-08-27] MEDS: NICOTINE 21 MG/24 HOURS TOPICAL PATCH TD SCH (09:27)
[2018-08-27] MEDS: traZODone HCL 50 MG TABLET (FP) PO SCH (21:10)
[2018-08-27] MEDS: MIRTAZAPINE 30 MG TABLET (FP) PO SCH (21:10)
[2018-08-27] MEDS: THIAMINE HCL 100 MG TABLET (FP) PO SCH (21:12)
[2018-08-27] MEDS: MELATONIN 5 MG TABLETS PO PRN (21:12)
[2018-08-28] MEDS: BISMUTH SUBSALICYLATE 262 MG/15 ML BTL PO PRN (10:06)
[2018-08-28] MEDS: PRENATAL VITAMINS W/ FOLIC ACID TABLET (FP) PO SCH (10:06)
[2018-08-28] MEDS: NICOTINE 21 MG/24 HOURS TOPICAL PATCH TD SCH (10:06)
[2018-08-28] MEDS: CALCIUM 250MG/VIT-D 125 UNITS 1 COMBO TABLET PO SCH ×2 (10:19→22:00)
[2018-08-28] MEDS ORDERED: ALBUTEROL SO4 2.5/IPRATROPIUM 0.5 INH SOL 3 ML VIAL.NEB. NEB PRN (16:56)
[2018-08-28] MEDS: NICOTINE POLACRILEX 2 MG GUM BUC PRN ×2 (17:36→23:53)
[2018-08-28] MEDS: MELATONIN 5 MG TABLETS PO PRN (22:00)
[2018-08-28] MEDS: THIAMINE HCL 100 MG TABLET (FP) PO SCH (22:00)
[2018-08-28] MEDS: traZODone HCL 50 MG TABLET (FP) PO SCH (22:00)
[2018-08-28] MEDS: MIRTAZAPINE 30 MG TABLET (FP) PO SCH (22:00)
[2018-08-29] MEDS: NICOTINE POLACRILEX 2 MG GUM BUC PRN ×3 (09:38→21:06)
[2018-08-29] MEDS: NICOTINE 21 MG/24 HOURS TOPICAL PATCH TD SCH (09:38)
[2018-08-29] MEDS: PRENATAL VITAMINS W/ FOLIC ACID TABLET (FP) PO SCH (09:43)
[2018-08-29] MEDS: CALCIUM 250MG/VIT-D 125 UNITS 1 COMBO TABLET PO SCH ×2 (09:43→21:06)
[2018-08-29] MEDS: MIRTAZAPINE 30 MG TABLET (FP) PO SCH (21:06)
[2018-08-29] MEDS: MELATONIN 5 MG TABLETS PO PRN (21:06)
[2018-08-29] MEDS: traZODone HCL 50 MG TABLET (FP) PO SCH (21:06)
[2018-08-29] MEDS: THIAMINE HCL 100 MG TABLET (FP) PO SCH (21:06)
[2018-08-30] MEDS: PRENATAL VITAMINS W/ FOLIC ACID TABLET (FP) PO SCH (09:48)
[2018-08-30] MEDS: NICOTINE 21 MG/24 HOURS TOPICAL PATCH TD SCH (09:48)
[2018-08-30] MEDS: CALCIUM 250MG/VIT-D 125 UNITS 1 COMBO TABLET PO SCH (09:48)
[2018-08-30] MEDS: NICOTINE POLACRILEX 2 MG GUM BUC PRN ×3 (09:49→21:14)
[2018-08-30] MEDS: MIRTAZAPINE 30 MG TABLET (FP) PO SCH (21:11)
[2018-08-30] MEDS: traZODone HCL 50 MG TABLET (FP) PO SCH (21:11)
[2018-08-30] MEDS: THIAMINE HCL 100 MG TABLET (FP) PO SCH (21:12)
[2018-08-30] MEDS: MELATONIN 5 MG TABLETS PO PRN (21:13)
[2018-08-31] MEDS: NICOTINE 21 MG/24 HOURS TOPICAL PATCH TD SCH (09:42)
[2018-08-31] MEDS: PRENATAL VITAMINS W/ FOLIC ACID TABLET (FP) PO SCH (09:42)
[2018-08-31] MEDS: NICOTINE POLACRILEX 2 MG GUM BUC PRN ×4 (09:44→23:45)
[2018-08-31] MEDS: MIRTAZAPINE 30 MG TABLET (FP) PO SCH (21:03)
[2018-08-31] MEDS: traZODone HCL 50 MG TABLET (FP) PO SCH (21:03)
[2018-08-31] MEDS: MELATONIN 5 MG TABLETS PO PRN (21:03)
[2018-08-31] MEDS: THIAMINE HCL 100 MG TABLET (FP) PO SCH (21:04)
[2018-09-01] MEDS: NICOTINE 21 MG/24 HOURS TOPICAL PATCH TD SCH (10:06)
[2018-09-01] MEDS: PRENATAL VITAMINS W/ FOLIC ACID TABLET (FP) PO SCH (10:06)
[2018-09-01] MEDS: NICOTINE POLACRILEX 2 MG GUM BUC PRN ×4 (10:06→21:06)
[2018-09-01] MEDS: MIRTAZAPINE 30 MG TABLET (FP) PO SCH (21:05)
[2018-09-01] MEDS: THIAMINE HCL 100 MG TABLET (FP) PO SCH (21:05)
[2018-09-01] MEDS: MELATONIN 5 MG TABLETS PO PRN (21:05)
[2018-09-01] MEDS: traZODone HCL 50 MG TABLET (FP) PO SCH (21:05)
[2018-09-02] MEDS: PRENATAL VITAMINS W/ FOLIC ACID TABLET (FP) PO SCH (09:53)
[2018-09-02] MEDS: NICOTINE 21 MG/24 HOURS TOPICAL PATCH TD SCH (09:53)
[2018-09-02] MEDS: NICOTINE POLACRILEX 2 MG GUM BUC PRN ×4 (09:53→21:09)
[2018-09-02] MEDS: traZODone HCL 50 MG TABLET (FP) PO SCH (21:06)
[2018-09-02] MEDS: MIRTAZAPINE 30 MG TABLET (FP) PO SCH (21:06)
[2018-09-02] MEDS: THIAMINE HCL 100 MG TABLET (FP) PO SCH (21:07)
[2018-09-02] MEDS: MELATONIN 5 MG TABLETS PO PRN (21:07)
[2018-09-03] MEDS: PRENATAL VITAMINS W/ FOLIC ACID TABLET (FP) PO SCH (10:05)
[2018-09-03] MEDS: NICOTINE 21 MG/24 HOURS TOPICAL PATCH TD SCH (10:05)
[2018-09-03] MEDS: NICOTINE POLACRILEX 2 MG GUM BUC PRN ×5 (10:06→23:25)
[2018-09-03] MEDS: BISMUTH SUBSALICYLATE 262 MG/15 ML BTL PO PRN (11:10)
[2018-09-03] MEDS: THIAMINE HCL 100 MG TABLET (FP) PO SCH (21:07)
[2018-09-03] MEDS: MIRTAZAPINE 30 MG TABLET (FP) PO SCH (21:07)
[2018-09-03] MEDS: traZODone HCL 50 MG TABLET (FP) PO SCH (21:07)
[2018-09-03] MEDS: MELATONIN 5 MG TABLETS PO PRN (21:08)
[2018-09-04 06:26] VITALS: BP 122/80; PULSE 55; TEMP 97.8
[2018-09-04] MEDS: PRENATAL VITAMINS W/ FOLIC ACID TABLET (FP) PO SCH (09:47)
[2018-09-04] MEDS: NICOTINE 21 MG/24 HOURS TOPICAL PATCH TD SCH (09:47)
[2018-09-04] MEDS: NICOTINE POLACRILEX 2 MG GUM BUC PRN ×5 (09:47→21:07)
[2018-09-04] MEDS: BISMUTH SUBSALICYLATE 262 MG/15 ML BTL PO PRN (18:59)
[2018-09-04] MEDS: MELATONIN 5 MG TABLETS PO PRN (21:06)
[2018-09-04] MEDS: traZODone HCL 50 MG TABLET (FP) PO SCH (21:06)
[2018-09-04] MEDS: MIRTAZAPINE 30 MG TABLET (FP) PO SCH (21:06)
[2018-09-04] MEDS: THIAMINE HCL 100 MG TABLET (FP) PO SCH (21:07)
[2018-09-05] MEDS: BISMUTH SUBSALICYLATE 262 MG/15 ML BTL PO PRN (10:01)
[2018-09-05] MEDS: PRENATAL VITAMINS W/ FOLIC ACID TABLET (FP) PO SCH (10:02)
[2018-09-05] MEDS: NICOTINE 21 MG/24 HOURS TOPICAL PATCH TD SCH (10:02)
--- NOTE | 2018-09-05 13:06 | PN ---
[facility] Progress Note Note: PT COMPLETED REHAB AND DISCHARGED TODAY. PT WAS REFERRED TO [facility] FOR AFTERCARE. Home Medications Medication Instructions Recorded Mirtazapine [Remeron -] 30 mg PO HS #30 tablet 09/04/18 Vital Signs (72 hours) 09/03/18 09/03/18 09/04/18 03:30 06:39 00:30 Temperature 97.2 F L Pulse Rate 58 L Respiratory 18 18 18 Rate Blood Pressure 129/72 09/04/18 09/04/18 09/05/18 03:30 06:25 00:30 Temperature 97.8 F Pulse Rate 55 L Respiratory 18 18 18 Rate Blood Pressure 122/80 09/05/18 03:30 Temperature Pulse Rate Respiratory 18 Rate Blood Pressure NAD MEDICALLY STABLE PLAN:FOLLOW UP WITH CD AFTERCARE RECOMMENDATION. GO TO NEAREST ER IN CASE OF MEDICAL EMERGENCY DX: PLEASE SEE INPATIENT SERVICE MED DOCUMENT.
== END 2018-09-05 11:10 | disposition home or self-care (01) | DRG 772 ==
LOC: YASAS 23:17 → Y5N 23:18
PROVIDERS: ADMIT Neuromusculoskeletal Medicine & OMM; ATTEND Neuromusculoskeletal Medicine & OMM
PROC: HZ42ZZZ Group Counseling for Substance Abuse Treatment, Cognitive-Behavioral (ICD-10-PCS; principal; 2018-08-23)
DX: F10.20 Alcohol dependence, uncomplicated (principal); F14.20 Cocaine dependence, uncomplicated; F17.210 Nicotine dependence, cigarettes, uncomplicated; F19.282 Other psychoactive substance dependence with psychoactive substance-induced sleep disorder; F19.24 Other psychoactive substance dependence with psychoactive substance-induced mood disorder; G47.00 Insomnia, unspecified; J45.909 Unspecified asthma, uncomplicated; E66.9 Obesity, unspecified; Z59.0 Homelessness

== ENCOUNTER 2019-02-28 12:19 | Inpatient (IN) | payer OTHER | END 2019-03-05 13:43 | disposition other institution (70) | LOC: YASAS 12:19 → Y6N 14:52 ==

== ENCOUNTER 2019-03-05 14:19 | Inpatient (IN) | payer OTHER ==
[2019-03-05] MEDS ORDERED: MENTHOL/PHENOL 1 EACH UD MM PRN (20:37)
[2019-03-05] MEDS ORDERED: ACETAMINOPHEN 325 MG TABLET (FP) PO PRN (20:37)
[2019-03-05] MEDS ORDERED: MAG HYDROX/AL HYDROX/SIMETH 30 ML UNIT-DOSE CUP PO PRN (20:37)
[2019-03-05] MEDS ORDERED: MAGNESIUM HYDROX 2400MG/30ML ORAL SUSPENSION 30 ML CUP PO PRN (20:37)
[2019-03-05] MEDS ORDERED: P-EPHED 60MG/TRIPROLIDI 2.5MG TABLET PO PRN (20:37)
[2019-03-05] MEDS ORDERED: MAGNESIUM CITRATE 300 ML BOTTLE PO PRN (20:37)
[2019-03-05] MEDS ORDERED: LOPERAMIDE HCL 2 MG CAPSULE PO PRN (20:37)
[2019-03-05] MEDS ORDERED: IBUPROFEN 400 MG TABLET (FP) PO PRN (20:37)
[2019-03-05] MEDS ORDERED: guaiFENesin 200 MG/10 ML 10 ML UNIT-DOSE CUPS PO PRN (20:37)
--- NOTE | 2019-03-05 20:37 | HP ---
[facility] Rehab Assess/Revision - Admission History Admitted to Rehab from: [facility] Date of Admission to Rehab: 03/05/2019 - Findings Detox History & Physical reviewed: Yes Concur with findings: Yes Comments/Additional Findings: Patient is from detox with early remission of alcohol use disorder. Patient w/ co-occurring marijuana and crack use disorder. PMhx: Asthma. Patient w/ a history of asthma. last EKG on 08/21/18 showed Sinus tachycardia w/ PVC's and prolonged QT interval. Patient denies chest pain or feeling of irregular heart beat. Inpatient Rehab Admission - Rehab Decision to Admit Inpatient rehab admission?: Yes - Initial Determination Are CD services needed?: Yes Free of communicable disease: Yes Not in need of hospitalization: Yes - Rehab Admission Criteria Previous failed treatment: Yes Poor recovery environment: Yes Comorbidities: Yes Lacks judgement: No Patient is meeting Inpatient Rehab admission criteria:: Yes
[2019-03-05] MEDS ORDERED: NICOTINE POLACRILEX 4 MG GUM BUC PRN (20:41)
[2019-03-05] MEDS: BACITRACIN 15 GM TUBE TOPICAL OINTMENT TP SCH (22:15)
[2019-03-05] MEDS: THIAMINE HCL 100 MG TABLET (FP) PO SCH (22:16)
[2019-03-05] MEDS: traZODone HCL 100 MG TABLET (FP) PO SCH (22:16)
[2019-03-05] MEDS: MELATONIN 5 MG TABLETS PO PRN (22:17)
[2019-03-06] MEDS: NICOTINE 14 MG/24 HOURS TOPICAL PATCH TD SCH (10:03)
[2019-03-06] MEDS: PRENATAL VITAMINS W/ FOLIC ACID TABLET (FP) PO SCH (10:04)
[2019-03-06] MEDS: BACITRACIN 15 GM TUBE TOPICAL OINTMENT TP SCH ×2 (10:04→21:59)
--- NOTE | 2019-03-06 13:05 | PN ---
[facility] Progress Note Note: New pt admitted to rehab last evening with a hx of alcohol and crack/cocaine dependence. Hx of Asthma, Seizures, HTN, Depression and Anxiety. Pt was psych consulted in Detox [address] [place] [address] with no medication recommended at the time but observation. As per detox psych note pt declined psychoeducation. Pt currently ordered Trazodone 100 mg hs after admission to rehab yesterday by covering VACUUM TECHNICIAN King. Pt states he was unable to remember if he saw psych in detox due to fatigue and detoxing and was having difficulty sleeping even with the Trazodone as ordered. Reports he takes Remeron 30 mg and requests to speak to psych MD to restart it.Reports last time taken was 02/22/19. Pt state he has primary doctor at [facility]. Reports last saw his doctor beginning of the tear but has been to many other treatment facilities over the past several months. Vital Signs - 24 hr 03/06/19 03/06/19 03:30 08:24 Temperature 97.9 F Pulse Rate 66 Respiratory 18 18 Rate Blood Pressure 147/97 A/P Hx Major Depression(pt reports) Sleeping problems To follow up with psych consult Increase po fluids
[2019-03-06] MEDS: NICOTINE POLACRILEX 4 MG GUM BUC PRN ×3 (17:42→22:01)
[2019-03-06] MEDS: BISMUTH SUBSALICYLATE 524 MG/30 ML UD PO PRN (21:59)
[2019-03-06] MEDS: MELATONIN 5 MG TABLETS PO PRN (21:59)
[2019-03-06] MEDS: traZODone HCL 100 MG TABLET (FP) PO SCH (21:59)
[2019-03-06] MEDS: THIAMINE HCL 100 MG TABLET (FP) PO SCH (21:59)
[2019-03-07] MEDS: NICOTINE POLACRILEX 4 MG GUM BUC PRN ×5 (06:39→22:15)
[2019-03-07] MEDS: PRENATAL VITAMINS W/ FOLIC ACID TABLET (FP) PO SCH (10:47)
[2019-03-07] MEDS: BACITRACIN 15 GM TUBE TOPICAL OINTMENT TP SCH ×2 (10:48→22:14)
[2019-03-07] MEDS: NICOTINE 14 MG/24 HOURS TOPICAL PATCH TD SCH (10:48)
--- NOTE | 2019-03-07 12:54 | CONSULT ---
[facility] Psychiatric Consult - Data Date of interview: 03/07/19 Admission source: [facility] Identifying data: Patient is a 43 year old single male, without children, unemployed, homeless, and is not supported with financial assistance. This is one of multiple admissions for patient. Patient admitted to for alcohol, cannabis, and cocaine dependence. Substance Abuse History: Smoking Cessation. Smoking history: Current every day smoker. Have you smoked in the past 12 months: Yes. Aproximately how many cigarettes per day: 20. Cigars Per Day: 0. Hx Chewing Tobacco Use: No. Initiated information on smoking cessation: No. - Substances abused. Marijuana/Hashish. Substance route: Smoking. Frequency: Daily. Amount used: 20 dollars. Age of first use: 18. Date of last use: 02/27/19. Crack. Substance route: Smoking. Frequency: 1-2 times per week. Amount used: 500 dollars. Age of first use: 22. Date of last use: 02/25/19. Alcohol. Substance route: Oral. Frequency: Daily. Amount used: 3 pints of vodka or whisky,200 ounces of beer. Age of first use: 7. Date of last use: 02/28/19 Medical History: seizures (2015) Psychiatric History: Patient reports one psychiatric hospitalization three years ago at [facility]. Mr. Chavez is unable to elaborate on why he was hospitalized as he only remembers being tied down and given IM's of thorazine (possible episode of drug induced psychosis). He reports seeing a psychiatrist last year as he attempted to receive SSI and was tried on Wellbutrin, prozac and risperdal. Patient denies history of auditory/ visual hallucinations, paranoid ideation and suicide attempt. Patient was recently in treatment for detox in [place] and was prescribed trazodone 100mg + Remeron 30mg HS with favorable effects. Patient has not taken remeron since discharge several weeks ago. At present patient reports difficulty sleeping. Physical/Sexual Abuse/Trauma History: denies. Mental Status Exam - Mental Status Exam Alert and Oriented to: Time, Place, Person Cognitive Function: Good Patient Appearance: Well Groomed Mood: Anxious Affect: Mood Congruent Patient Behavior: Cooperative Speech Pattern: Appropriate Voice Loudness: Normal Thought Process: Goal Oriented Thought Disorder: Not Present Hallucinations: Denies Suicidal Ideation: Denies Homicidal Ideation: Denies Insight/Judgement: Poor Sleep: Poorly Appetite: Fair Muscle strength/Tone: Normal Gait/Station: Normal Psychiatric Findings - Problem List ([place] 1, 2,3) (1) Substance-induced sleep disorder Current Visit: Yes Status: Acute (2) Cannabis abuse Current Visit: Yes Status: Chronic Comment: Self-report. Negative toxicology. (3) Cocaine dependence Current Visit: Yes Status: Chronic Qualifiers: Substance use status: uncomplicated Qualified Code(s): F14.20 - Cocaine dependence, uncomplicated Comment: Urine toxicology is negative for cocaine but the patient has reported a sustained history of daily abuse of that substance since age 17. (4) Substance induced mood disorder Current Visit: Yes Status: Suspected - Initial Treatment Plan Initial Treatment Plan: Psychoeducation provided. Rehab in progress. Will order Mirtazapine 15mg HS. Patient ordered trazodone 100mg upon admission. Patient refusing to accept a higher dose of trazodone as he states it has not been effective. Stated to teletypewriter operator that the combination of trazodone and remeron works well for him. Benefits and side effects discussed. Verbal consent given.
[2019-03-07] MEDS: BISMUTH SUBSALICYLATE 524 MG/30 ML UD PO PRN ×2 (15:51→22:15)
[2019-03-07] MEDS: THIAMINE HCL 100 MG TABLET (FP) PO SCH (22:15)
[2019-03-07] MEDS: MIRTAZAPINE 15 MG TABLET (FP) PO SCH (22:15)
[2019-03-07] MEDS: traZODone HCL 100 MG TABLET (FP) PO SCH (22:15)
[2019-03-07] MEDS: MELATONIN 5 MG TABLETS PO PRN (22:16)
[2019-03-08] MEDS: NICOTINE POLACRILEX 4 MG GUM BUC PRN ×5 (06:53→22:25)
[2019-03-08] MEDS: PRENATAL VITAMINS W/ FOLIC ACID TABLET (FP) PO SCH (10:08)
[2019-03-08] MEDS: NICOTINE 14 MG/24 HOURS TOPICAL PATCH TD SCH (10:08)
[2019-03-08] MEDS: BACITRACIN 15 GM TUBE TOPICAL OINTMENT TP SCH ×2 (10:10→22:23)
[2019-03-08] MEDS: BISMUTH SUBSALICYLATE 524 MG/30 ML UD PO PRN (10:11)
[2019-03-08] MEDS: traZODone HCL 100 MG TABLET (FP) PO SCH (22:19)
[2019-03-08] MEDS: MELATONIN 5 MG TABLETS PO PRN (22:19)
[2019-03-08] MEDS: MIRTAZAPINE 15 MG TABLET (FP) PO SCH (22:19)
[2019-03-08] MEDS: THIAMINE HCL 100 MG TABLET (FP) PO SCH (22:20)
[2019-03-09] MEDS: NICOTINE POLACRILEX 4 MG GUM BUC PRN ×5 (08:21→21:58)
[2019-03-09] MEDS: NICOTINE 14 MG/24 HOURS TOPICAL PATCH TD SCH (10:34)
[2019-03-09] MEDS: PRENATAL VITAMINS W/ FOLIC ACID TABLET (FP) PO SCH (10:34)
[2019-03-09] MEDS: BACITRACIN 15 GM TUBE TOPICAL OINTMENT TP SCH ×2 (10:34→21:58)
[2019-03-09] MEDS: THIAMINE HCL 100 MG TABLET (FP) PO SCH (21:58)
[2019-03-09] MEDS: traZODone HCL 100 MG TABLET (FP) PO SCH (21:58)
[2019-03-09] MEDS: MELATONIN 5 MG TABLETS PO PRN (21:58)
[2019-03-09] MEDS: MIRTAZAPINE 15 MG TABLET (FP) PO SCH (21:58)
[2019-03-10] MEDS: NICOTINE POLACRILEX 4 MG GUM BUC PRN ×7 (08:32→23:57)
[2019-03-10] MEDS: BACITRACIN 15 GM TUBE TOPICAL OINTMENT TP SCH ×2 (10:35→22:06)
[2019-03-10] MEDS: PRENATAL VITAMINS W/ FOLIC ACID TABLET (FP) PO SCH (10:50)
[2019-03-10] MEDS: NICOTINE 14 MG/24 HOURS TOPICAL PATCH TD SCH (10:50)
[2019-03-10] MEDS: traZODone HCL 100 MG TABLET (FP) PO SCH (22:07)
[2019-03-10] MEDS: MIRTAZAPINE 15 MG TABLET (FP) PO SCH (22:07)
[2019-03-10] MEDS: THIAMINE HCL 100 MG TABLET (FP) PO SCH (22:08)
[2019-03-10] MEDS: MELATONIN 5 MG TABLETS PO PRN (22:09)
[2019-03-10] MEDS: BISMUTH SUBSALICYLATE 524 MG/30 ML UD PO PRN (22:09)
[2019-03-11] MEDS: NICOTINE POLACRILEX 4 MG GUM BUC PRN ×6 (08:42→22:44)
[2019-03-11] MEDS: BACITRACIN 15 GM TUBE TOPICAL OINTMENT TP SCH ×2 (10:08→21:56)
[2019-03-11] MEDS: PRENATAL VITAMINS W/ FOLIC ACID TABLET (FP) PO SCH (10:08)
[2019-03-11] MEDS: NICOTINE 14 MG/24 HOURS TOPICAL PATCH TD SCH (10:09)
[2019-03-11] MEDS: MIRTAZAPINE 15 MG TABLET (FP) PO SCH (21:56)
[2019-03-11] MEDS: MELATONIN 5 MG TABLETS PO PRN (21:56)
[2019-03-11] MEDS: THIAMINE HCL 100 MG TABLET (FP) PO SCH (21:56)
[2019-03-11] MEDS: traZODone HCL 100 MG TABLET (FP) PO SCH (21:56)
[2019-03-12] MEDS: NICOTINE POLACRILEX 4 MG GUM BUC PRN ×6 (06:49→21:59)
[2019-03-12] MEDS: NICOTINE 14 MG/24 HOURS TOPICAL PATCH TD SCH (11:05)
[2019-03-12] MEDS: BACITRACIN 15 GM TUBE TOPICAL OINTMENT TP SCH ×2 (11:05→21:57)
[2019-03-12] MEDS: PRENATAL VITAMINS W/ FOLIC ACID TABLET (FP) PO SCH (11:05)
[2019-03-12] MEDS: BISMUTH SUBSALICYLATE 524 MG/30 ML UD PO PRN (11:07)
[2019-03-12] MEDS: MIRTAZAPINE 15 MG TABLET (FP) PO SCH (21:58)
[2019-03-12] MEDS: traZODone HCL 100 MG TABLET (FP) PO SCH (21:58)
[2019-03-12] MEDS: MELATONIN 5 MG TABLETS PO PRN (21:58)
[2019-03-12] MEDS: THIAMINE HCL 100 MG TABLET (FP) PO SCH (21:58)
[2019-03-13] MEDS: PRENATAL VITAMINS W/ FOLIC ACID TABLET (FP) PO SCH (11:06)
[2019-03-13] MEDS: BACITRACIN 15 GM TUBE TOPICAL OINTMENT TP SCH ×2 (11:07→21:52)
[2019-03-13] MEDS: NICOTINE 14 MG/24 HOURS TOPICAL PATCH TD SCH (11:07)
[2019-03-13] MEDS: NICOTINE POLACRILEX 4 MG GUM BUC PRN ×4 (12:33→21:54)
[2019-03-13] MEDS: THIAMINE HCL 100 MG TABLET (FP) PO SCH (21:53)
[2019-03-13] MEDS: MELATONIN 5 MG TABLETS PO PRN (21:53)
[2019-03-13] MEDS: traZODone HCL 100 MG TABLET (FP) PO SCH (21:53)
[2019-03-13] MEDS: MIRTAZAPINE 15 MG TABLET (FP) PO SCH (21:53)
[2019-03-13] MEDS: BISMUTH SUBSALICYLATE 262 MG/15 ML BTL PO PRN (21:54)
[2019-03-14] MEDS: NICOTINE POLACRILEX 4 MG GUM BUC PRN ×4 (08:38→21:37)
[2019-03-14] MEDS: PRENATAL VITAMINS W/ FOLIC ACID TABLET (FP) PO SCH (11:00)
[2019-03-14] MEDS: NICOTINE 14 MG/24 HOURS TOPICAL PATCH TD SCH (11:00)
[2019-03-14] MEDS: BACITRACIN 15 GM TUBE TOPICAL OINTMENT TP SCH ×2 (11:01→21:49)
[2019-03-14] MEDS: BISMUTH SUBSALICYLATE 262 MG/15 ML BTL PO PRN ×2 (11:01→21:37)
[2019-03-14] MEDS: traZODone HCL 100 MG TABLET (FP) PO SCH (21:36)
[2019-03-14] MEDS: THIAMINE HCL 100 MG TABLET (FP) PO SCH (21:36)
[2019-03-14] MEDS: MELATONIN 5 MG TABLETS PO PRN (21:36)
[2019-03-14] MEDS: MIRTAZAPINE 15 MG TABLET (FP) PO SCH (21:36)
[2019-03-15] MEDS: NICOTINE POLACRILEX 4 MG GUM BUC PRN ×6 (08:03→23:28)
[2019-03-15] MEDS: BISMUTH SUBSALICYLATE 262 MG/15 ML BTL PO PRN ×2 (08:52→20:33)
[2019-03-15] MEDS: PRENATAL VITAMINS W/ FOLIC ACID TABLET (FP) PO SCH (10:50)
[2019-03-15] MEDS: NICOTINE 14 MG/24 HOURS TOPICAL PATCH TD SCH (10:50)
[2019-03-15] MEDS: BACITRACIN 15 GM TUBE TOPICAL OINTMENT TP SCH ×2 (10:51→21:27)
[2019-03-15] MEDS: MELATONIN 5 MG TABLETS PO PRN (21:28)
[2019-03-15] MEDS: traZODone HCL 100 MG TABLET (FP) PO SCH (21:28)
[2019-03-15] MEDS: THIAMINE HCL 100 MG TABLET (FP) PO SCH (21:28)
[2019-03-15] MEDS: MIRTAZAPINE 15 MG TABLET (FP) PO SCH (21:28)
[2019-03-16] MEDS: NICOTINE 14 MG/24 HOURS TOPICAL PATCH TD SCH (10:24)
[2019-03-16] MEDS: BACITRACIN 15 GM TUBE TOPICAL OINTMENT TP SCH ×2 (10:24→22:20)
[2019-03-16] MEDS: PRENATAL VITAMINS W/ FOLIC ACID TABLET (FP) PO SCH (10:25)
[2019-03-16] MEDS: NICOTINE POLACRILEX 4 MG GUM BUC PRN ×4 (12:32→21:02)
[2019-03-16] MEDS: traZODone HCL 100 MG TABLET (FP) PO SCH (21:01)
[2019-03-16] MEDS: MIRTAZAPINE 15 MG TABLET (FP) PO SCH (21:01)
[2019-03-16] MEDS: MELATONIN 5 MG TABLETS PO PRN (21:02)
[2019-03-16] MEDS: THIAMINE HCL 100 MG TABLET (FP) PO SCH (21:02)
[2019-03-17] MEDS: PRENATAL VITAMINS W/ FOLIC ACID TABLET (FP) PO SCH (11:14)
[2019-03-17] MEDS: NICOTINE 14 MG/24 HOURS TOPICAL PATCH TD SCH (11:14)
[2019-03-17] MEDS: BACITRACIN 15 GM TUBE TOPICAL OINTMENT TP SCH ×2 (11:14→21:53)
[2019-03-17] MEDS: NICOTINE POLACRILEX 4 MG GUM BUC PRN ×3 (11:15→21:55)
--- NOTE | 2019-03-17 11:38 | PN ---
[facility] Progress Note Note: Patient is scheduled for discharge tomorrow. Scripts for 30 days supply of medications(Remeron 15 mg/hs, Trazadone 100 mg/HS) will be electronically transmitted to [facility] at [address] [place] [address]
[2019-03-17] MEDS: BISMUTH SUBSALICYLATE 262 MG/15 ML BTL PO PRN (12:43)
[2019-03-17] MEDS: MIRTAZAPINE 15 MG TABLET (FP) PO SCH (21:53)
[2019-03-17] MEDS: traZODone HCL 100 MG TABLET (FP) PO SCH (21:53)
[2019-03-17] MEDS: THIAMINE HCL 100 MG TABLET (FP) PO SCH (21:54)
[2019-03-17] MEDS: MELATONIN 5 MG TABLETS PO PRN (21:54)
[2019-03-18 07:21] VITALS: BP 137/78; PULSE 55; TEMP 97.2
[2019-03-18] MEDS: NICOTINE 14 MG/24 HOURS TOPICAL PATCH TD SCH (09:49)
[2019-03-18] MEDS: BACITRACIN 15 GM TUBE TOPICAL OINTMENT TP SCH (09:50)
[2019-03-18] MEDS: BISMUTH SUBSALICYLATE 262 MG/15 ML BTL PO PRN (09:50)
[2019-03-18] MEDS: PRENATAL VITAMINS W/ FOLIC ACID TABLET (FP) PO SCH (09:50)
--- NOTE | 2019-03-18 11:48 | DS ---
[facility] Rehab Discharge Summary - [facility] Rehab Discharge Summary Admission Date: 03/05/19 Discharge Date: 03/18/19 - History Present History: Alcohol dependence, Cannabis dependence, Cocaine dependence Additional Comments: Pt is a 43 y/o male admitted to rehab for PERLA and discharged today after completion. Pt has been referred to [facility] aftercare program to continue care. Pertinent Past History: Asthma Obesity Mood Disorder - Discharge Physical Exam Vital Signs: Vital Signs Temperature 97.2 F L 03/18/19 07:21 Pulse Rate 55 L 03/18/19 07:21 Respiratory Rate 18 03/18/19 07:21 Blood Pressure 137/78 03/18/19 07:21 O2 Sat by Pulse Oximetry (%) Pertinent Admission Physical Exam Findings: Unremarkable/status unchanged - Treatment Discharge Condition: Discharge condition good Hospital Course: Rehabilitated safely and responded well CD Aftercare referral accepted - Medication Discharge Medications: Ambulatory Orders Mirtazapine [Remeron -] 30 mg PO HS #30 tablet 09/04/18 Mirtazapine [Remeron -] 15 mg PO HS #30 tablet 03/17/19 traZODone HCL [Trazodone HCl] 100 mg PO HS #30 tablet 03/17/19 - Medication-Assisted Treatment (MAT) Medication-Assisted Treatment (MAT): No - Discharge Instructions Diet, activity, other medical instructions: Diet:Regular Activity: oob ad jeffrey Other medical instructions:Follow up with CD aftercare at [facility] @[address] [place] [address]. follow up with your primary care provider within 1-2 weeks after discharge. - Diagnosis (1) Bronchial asthma Status: Chronic Qualifiers: Asthma severity: unspecified severity Asthma persistence: unspecified Asthma complication type: unspecified Qualified Code(s): J45.909 - Unspecified asthma, uncomplicated (2) Cocaine dependence Status: Chronic Qualifiers: Substance use status: uncomplicated Qualified Code(s): F14.20 - Cocaine dependence, uncomplicated (3) Nicotine dependence Status: Chronic Qualifiers: Nicotine product type: cigarettes Substance use status: uncomplicated Qualified Code(s): F17.210 - Nicotine dependence, cigarettes, uncomplicated (4) Obesity Status: Chronic Qualifiers: Obesity type: unspecified obesity type Obesity classification: adult class 1 (BMI 30 - 34.9) (5) Alcohol dependence Status: Chronic Qualifiers: Substance use status: uncomplicated Qualified Code(s): F10.20 - Alcohol dependence, uncomplicated (6) Hx of seizure disorder Status: Suspected - Follow-up Referral Minutes to complete discharge: 20 - AMA Did Patient Leave Against Medical Advice: No
== END 2019-03-18 10:35 | disposition home or self-care (01) | DRG 772 ==
LOC: YASAS 14:19 → Y5N 14:20
PROVIDERS: ADMIT Neuromusculoskeletal Medicine & OMM; ATTEND Neuromusculoskeletal Medicine & OMM
PROC: HZ42ZZZ Group Counseling for Substance Abuse Treatment, Cognitive-Behavioral (ICD-10-PCS; principal; 2019-03-05)
DX: F10.20 Alcohol dependence, uncomplicated (principal); F14.20 Cocaine dependence, uncomplicated; F12.10 Cannabis abuse, uncomplicated; F17.210 Nicotine dependence, cigarettes, uncomplicated; F19.24 Other psychoactive substance dependence with psychoactive substance-induced mood disorder; E66.9 Obesity, unspecified; Z68.31 Body mass index [BMI] 31.0-31.9, adult; Z86.69 Personal history of other diseases of the nervous system and sense organs; Z59.0 Homelessness